=== PATIENT | female | born 1950 | race Caucasian/White ===

== ENCOUNTER 2016-10-19 11:43 | Inpatient (IN) ==
[2016-10-19] MEDS ORDERED: Ipratropium/Albuterol Neb 3 ML ONE (11:47)
[2016-10-19] MEDS ORDERED: methylPREDNISolone 125 MG/2 ML VIAL IVP ONE (11:50)
[2016-10-19] MEDS ORDERED: Ipratropium/Albuterol Neb 3 ML IH ONE (11:50)
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
[2016-10-19 12:32] LABS: Basophils % 0.1 %; Hematocrit 40.7 % (35.3-44.9); Hemoglobin 12.9 g/dL (11.5-15.4); Immature Granulocytes % 0.7 % (0-4); Lymphocytes # 1.4 K/mcL (0.6-4.6); Lymphocytes % 9.1 %; Mean Corpuscular HGB Conc 31.7 g/dL (31.6-35.5); Mean Corpuscular Hemoglobin 24.6 pg (28.0-33.3); Mean Corpuscular Volume 77.5 fL (83.0-100.0); Mean Platelet Volume 8.4 fL (9.4-12.4); Monocytes # 0.6 K/mcL (0.0-1.3); Monocytes % 3.5 %; Neutrophils # 13.7 K/mcL (1.6-8.9); Platelet Count 350 K/mcL (140-400); Red Blood Count 5.25 M/mcL (3.82-4.97); Red Cell Distribution Width 16.2 % (11.5-14.5); Segmented Neutrophils % 86.6 %
[2016-10-19 12:46] LABS: BUN/Creatinine Ratio 12 (6-26); Blood Urea Nitrogen 10 mg/dL (7-20); Calcium 9.2 mg/dL (8.6-10.8); Carbon Dioxide 23 mEq/L (19-29); Chloride 98 mEq/L (98-109); Glucose 128 mg/dL (70-99); Osmolality,Calculated 271 (280-300); Potassium 3.9 mEq/L (3.5-4.5); Sodium 130 mEq/L (136-145); eGFR For African Americans > 60 (> 60); eGFR For Non-African Americans > 60 (> 60)
[2016-10-19] MEDS ORDERED: 0.9 % Sodium Chloride 1,000 ML IVC ONE (15:14)
[2016-10-19] MEDS ORDERED: Naloxone 0.4 MG/ML INJ IVP PRN (15:37)
--- NOTE | 2016-10-19 15:52 | Internal Med History&Physical ---
<Cyntiha Aquino Boy - Last Filed: 10/19/16 15:47> Date of Encounter: 10/19/16 Time of Encounter: 15:48 Assessment and Plan (1) Acute exacerbation of chronic obstructive airways disease Current visit: Yes Status: Acute per hx. Not on home O2. Presented with worsening SOB. 10/18/2016 CXR at urgent care suggestive of pneumonia, repeat CXR in ED non-acute. WBC 15K (on steroids at home), lactic acid 3.5. With diffuse wheezing on exam. Cont IV steroids started in ED. Add azithromycin, Rocephin to cover for possible pneumonia. Duonebs. CT chest, resp PCR pending (2) Lactic acid acidosis Current visit: Yes Status: Acute lactic acid 3.5, WBC 15K; has been on steroids at home but now with COPD exacerbation, possible pneumonia. Received 1 liter fluids in ED. Cont IV fluids , blood, urine cx pending. Cont ATBs as noted above for COPD exacerbation. Monitor repeat lactic acid (3) Atrial fibrillation Current visit: Yes Status: Acute hx paroxysmal atrial fibrillation. Not on anticoagulation for unknown reasons. EKG with ST; HR low 100s in ED. Cont home BB, ASA. Monitor on tele (4) CAD (coronary artery disease) Current visit: Yes Status: Acute per hx. Asymptomatic, denies CP. EKG without acute ST changes. Cont home ASA, statin, BB (5) Breast CA Current visit: No Status: Chronic per hx. S/p left mastectomy. No acute needs at this time. Can follow up with Oncology as needed (6) DVT prophylaxis Current visit: Yes Status[facility] Internal [facility] - H&P: HPI Chief complaint: shortness of breath Admitted From: Home Plans for Post Hospital Care: Home History of present illness: Ms. Salazar is a 66 year old female with PMH COPD, CAD, atrial fibrillation, HTN and hx breast cancer who presented [facility] on 10/19/2016 with complaints of shortness of breath. She was placed in observation status for COPD exacerbation. Information obtained for chart review and patient report. Patient reports increasing SOB for the last 2 weeks, worse with activity and minimally improved with rest. Went to local urgent care yesterday and was told she had PNA and was given rx for Levaqion and steroids. She took 2 doses of both without improvement in sx's so came to ER today. HAs a cough, productive at times. No sick contacts that she is aware. Denies CP. Past Med Surg Social Fam HX - Past Medical History Medical history: asthma, cancer, COPD Psychiatric history: no psych history - Past Surgical History Surgical History: non-contributory - Social History Smoking Status: Current every day smoker Smokeless Tobacco Status: No Alcohol use: none Drug use: none - Family History Father Hx Family Cardiac Disorders: Yes (CAD) Internal Medicine - H&P: Meds Albuterol Sulfate [Proair HFA] 1 - 2 puff IH Q4HR PRN 10/15/14 [History] Atenolol [Tenormin] 25 mg PO DAILY 10/15/14 [History] Atorvastatin [Lipitor] 40 mg PO HS 10/15/14 [History] RX: Aspirin Enteric Coated [Aspirin EC] 81 mg PO DAILY 10/15/14 [History] Anastrozole [Arimidex] 1 mg PO DAILY #30 tablet 05/03/16 [Rx] Losartan [Cozaar] 25 mg PO DAILY 08/13/16 [History] levoFLOXacin [Levofloxacin] 750 mg PO DAILY 10/19/16 [History] predniSONE [PredniSONE] 20 mg PO BID 10/19/16 [History] Allergies codeine Adverse Reaction (Mild, Verified 08/13/16 10:05) Nausea Oxycodone Adverse Reaction (Mild, Verified 08/13/16 10:05) Nausea All Systems PM: A 10-system review of systems was performed and is negative for pertinent findings except as documented above in the HPI. - Constitutional Constitutional: no chills, no fever(s), no night sweats - EENT Eyes: no change in vision, no discharge, no pain, no photophobia Ears: no ear discharge, no ear pain, no tinnitus Nose, mouth and throat: no dysphagia, no nasal discharge, no neck pain, no sore throat - Cardiovascular Cardiovascular ROS IM: no chest pain, no diaphoresis, no dyspnea, no lightheadedness, no palpitations, no syncope - Respiratory Respiratory: dyspnea, dyspnea on exertion, wheezing, chest congestion, pain with cough, no cough, no excessive phlegm production - Gastrointestinal Gastrointestinal: no abdominal pain, no diarrhea, no hematemesis, no hematochezia, no melena, no nausea, no vomiting - Genitourinary Genitourinary: no change in urinary stream, no dysuria, no flank pain, no hematuria - Musculoskeletal Musculoskeletal ROS IM: no numbness, no tingling - Integumentary Integumentary IM: no rash, no unusual bruising - Neurological Neurological ROS: no confusion, no convulsions, no focal weakness, no numbness, no tingling, no tremor(s) - Hematologic/Lymphatic Hematologic/Lymphatic: no easy bruising - Constitutional Vitals: Temp Pulse Resp BP Pulse Ox 98.7 F 100 20 161/78 95 10/19/16 13:10 10/19/16 14:44 10/19/16 14:44 10/19/16 14:44 10/19/16 14:44 General appearance: Present: A&O X 3 - Head Head exam: Present: atraumatic, normocephalic - Eye Eye exam: Present: PERRL, conjuntiva pink, sclera anicteric Pupils: Present: PERRL - Neck Neck exam general surgery: Present: supple, trachea midline. Absent: lymphadenopathy - Respiratory Respiratory exam: Present: decreased breath sounds, wheezes. Absent: accessory muscle use, rales, rhonchi - Cardiovascular Cardiovascular exam: Present: RRR, +S1, +S2. Absent: diastolic murmur, gallop, rubs, systolic murmur - GI/Abdominal GI/Abdominal exam: Present: normal bowel sounds, soft, no peritoneal signs. Absent: distended, tenderness - Extremities Exam Extremities exam: Present: warm, radial pulses palpable and symmetrical. Absent : calf tenderness, cyanotic, pedal edema - Neurological Exam Neurological exam: Present: CN II-XII intact, oriented X3, no focal deficits. Absent: pronater drift, facial droop, speech deficit - Skin Skin exam: Present: dry, intact Internal Med - H&P Results - Labs CBC & Chem 7: 10/19/16 12:20 10/19/16 12:20 <Noel Saldana - Last Filed: 10/19/16 19:38> Date of Encounter: 10/19/16 Internal Medicine - H&P: HPI History of present illness: Ms. Salazar is a 66 year old female Past Med Surg Social Fam HX - Family History Father Living Status: Cause of : CA Hx Family Cardiac Disorders: Yes (CAD) Hx Family Cancer: Yes (Lung, mets) Mother Living Status: Age at : 66 Hx Family Cardiac Disorders: Yes Hx Family Endocrine Disorder: Yes (DM) Son Living Status: Still Living Hx Family Cancer: Yes (Testicular) All Systems PM: A 10-system review of systems was performed and is negative for pertinent findings except as documented above in the HPI. - Constitutional Vitals: Temp Pulse Resp BP Pulse Ox 98.4 F 88 16 154/78 94 10/19/16 19:02 10/19/16 19:02 10/19/16 19:02 10/19/16 19:02 10/19/16 19:02 Internal Med - H&P Results - Labs CBC & Chem 7: 10/19/16 12:20 10/19/16 12:20 - Impressions ITS Impressions Chest CT 10/19/16 15:41 IMPRESSION: No acute abnormality with the above findings. Hyperinflation with upper lobe predominant centrilobular emphysema. D/ / Montrell Abrams MD / Montrell Abrams MD Interpreting Provider: Montrell Abrams MD - Attending Attestation I have personally performed a face to face evaluation on this patient. I have reviewed and agree with the care plan. History and Exam by me shows: Ms. Salazar is currently admitted for chest pain and dyspnea. She is feeling better sitting forward. CT nonacute Exam Alert. Moderate distress due to pain Heart reg Lungs with scattered L side rales Abd soft No edema Agree with plan as outlined above Concern for pleurisy or pericarditis. Check inflammatory markers. Toradol x 1
[2016-10-19] MEDS: Ipratropium/Albuterol Neb 3 ML IH SCH ×3 (15:55→22:57)
[2016-10-19 17:55] LABS: Bilirubin,Urine Negative (Negative); Blood,Urine Negative (Negative); Clarity,Urine Clear (Clear); Color,Urine Yellow (Yellow); Glucose,Urine (UA) Normal (Normal); Ketones,Urine Negative (Negative); Leukocyte Esterase,Urine Trace (Negative); Nitrite,Urine Negative (Negative); Protein,Urine Negative (Neg-Trace); Specific Gravity,Urine 1.012 (1.010-1.025); Urobilinogen,Urine Normal (Normal)
[2016-10-19 17:57] LABS: Bacteria,Urine None Seen per hpf (None-Few); Hyaline Casts,Urine None Seen per lpf (None-Few); Squamous Epithelial Cell,Urine Many per lpf (None-Few); WBC,Urine 0-3 per hpf (0-3)
[2016-10-19] MEDS: 0.9 % Sodium Chloride 1,000 ML IVC SCH (18:14)
[2016-10-19] MEDS: MethylPREDNISolone 40 MG/ML VIAL IVP SCH ×2 (18:15→23:17)
[2016-10-19] MEDS ORDERED: Ketorolac 30 MG/ML VIAL IVP ONE (18:48)
[2016-10-19] MEDS: Azithromycin 500 MG in D5% in Water 250 ML IVPB SCH (19:09)
[2016-10-20 01:57] LABS: Adenovirus Not Detected (Not Detect); Bordetella Pertussis Not Detected (Not Detect); Chlamydophila pneumoniae Not Detected (Not Detect); Coronavirus 229E Not Detected (Not Detect); Coronavirus HKU1 Not Detected (Not Detect); Coronavirus NL63 Not Detected (Not Detect); Coronavirus OC43 Not Detected (Not Detect); Human Metapneumovirus Not Detected (Not Detect); Human Rhinovirus/Enterovirus ***DETECTED*** (Not Detect); Influenza A Subtype 2009 H1 Not Detected (Not Detect); Influenza A Untypeable Not Detected (Not Detect); Influenza B Not Detected (Not Detect); Mycoplasma pneumoniae Not Detected (Not Detect); Parainfluenza Virus 1 Not Detected (Not Detect); Parainfluenza Virus 2 Not Detected (Not Detect); Parainfluenza Virus 3 Not Detected (Not Detect); Parainfluenza Virus 4 Not Detected (Not Detect); Respiratory Syncytial Virus Not Detected (Not Detect)
[2016-10-20] MEDS: Ipratropium/Albuterol Neb 3 ML IH SCH ×6 (04:06→23:16)
[2016-10-20] MEDS: *HR* Enoxaparin 40 MG/0.4 ML SYRINGE SQ SCH (06:00)
[2016-10-20] MEDS: MethylPREDNISolone 40 MG/ML VIAL IVP SCH ×3 (06:00→17:29)
[2016-10-20] MEDS: 0.9 % Sodium Chloride 1,000 ML IVC SCH ×2 (06:02→16:16)
[2016-10-20 06:30] LABS: Basophils % 0.1 %; Hemoglobin 11.4 g/dL (11.5-15.4); Immature Granulocytes % 1.1 % (0-4); Lymphocytes # 1.2 K/mcL (0.6-4.6); Lymphocytes % 7.2 %; Mean Corpuscular HGB Conc 32.6 g/dL (31.6-35.5); Mean Corpuscular Hemoglobin 25.5 pg (28.0-33.3); Mean Corpuscular Volume 78.3 fL (83.0-100.0); Mean Platelet Volume 8.5 fL (9.4-12.4); Monocytes # 0.3 K/mcL (0.0-1.3); Monocytes % 1.9 %; Neutrophils # 14.5 K/mcL (1.6-8.9); Platelet Count 286 K/mcL (140-400); Red Blood Count 4.47 M/mcL (3.82-4.97); Red Cell Distribution Width 16.4 % (11.5-14.5); Segmented Neutrophils % 89.7 %
[2016-10-20 06:45] LABS: Alanine Aminotransferase 13 Units/L (0-55); Albumin 3.2 g/dL (3.5-5.0); Albumin/Globulin Ratio 0.9 (1.1-2.2); Alkaline Phosphatase 69 Units/L (38-126); Aspartate Amino Transferase 20 Units/L (5-34); BUN/Creatinine Ratio 15 (6-26); Blood Urea Nitrogen 11 mg/dL (7-20); Calcium 8.6 mg/dL (8.6-10.8); Carbon Dioxide 26 mEq/L (19-29); Chloride 101 mEq/L (98-109); Globulin 3.4 g/dL (2.4-3.5); Glucose 145 mg/dL (70-99); Osmolality,Calculated 278 (280-300); Potassium 4.2 mEq/L (3.5-4.5); Sodium 133 mEq/L (136-145); Total Protein 6.6 g/dL (6.0-8.3); eGFR For African Americans > 60 (> 60); eGFR For Non-African Americans > 60 (> 60)
[2016-10-20 06:46] LABS: Bilirubin,Total < 0.3 mg/dL (0.2-1.2)
[2016-10-20] MEDS: Aspirin Enteric Coated 81 MG Tablet PO SCH (08:44)
[2016-10-20] MEDS: Anastrozole 1 MG TABLET PO SCH (08:44)
--- NOTE | 2016-10-20 14:45 | Electrocardiograph Report ---
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
[2016-10-20] MEDS: Azithromycin 500 MG in D5% in Water 250 ML IVPB SCH (17:29)
[2016-10-20] MEDS ORDERED: 0.9 % Sodium Chloride 1,000 ML IVC SCH (18:15)
--- NOTE | 2016-10-20 18:17 | Internal Med Progress Note ---
Date of Encounter: 10/20/16 Time of Encounter: 09:40 - Assessment and plan (1) Acute exacerbation of chronic obstructive airways disease Current Visit: Yes Status: Acute Assessment and plan: Acute exacerbation of COPD - improving slowly Continue IV azithromycin, IV Rocephin, DuoNeb breathing treatment, IV Solu- Medrol Chest x-ray - no acute process EKG - sinus rhythm with no acute ST-T changes CT chest - no acute abnormality Cardiac telemetry, continuous pulse ox, labs in a.m. Anticipate discharge home in a.m. (2) Breast CA Current Visit: No Status: Chronic Assessment and plan: History of breast cancer status post left mastectomy, continue anastrozole Qualifiers: Breast location: unspecified site of breast Estrogen receptor status: unspecified Laterality: left Qualified Code(s): C50.912 - Malignant neoplasm of unspecified site of left female breast (3) Atrial fibrillation Current Visit: Yes Status: Chronic Assessment and plan: History of paroxysmal atrial fibrillation, not on any anticoagulation, sinus rhythm at present Qualifiers: Atrial fibrillation type: paroxysmal Qualified Code(s): I48.0 - Paroxysmal atrial fibrillation (4) CAD (coronary artery disease) Current Visit: Yes Status: Chronic Assessment and plan: History of coronary artery disease as per records - stable, no anginal symptoms EKG - sinus rhythm with no acute ST-T changes Troponin - negative BN peptide - 152 Continue aspirin, statin Qualifiers: Coronary Disease-Associated Artery/Lesion type: [place] artery [place] vs. transplanted heart: pala heart Associated angina: without angina Qualified Code(s): I25.10 - Atherosclerotic heart disease of [place] coronary artery without angina pectoris (5) DVT prophylaxis Current Visit: Yes Status: Acute Assessment and plan: Continue Lovenox subcutaneous - Time Spent With Patient 25 - 35 minutes - Subjective Interval history: Examined this morning. Patient is awake and alert. Not in any distress. Denies chest pain or shortness of breath. No fever. Hemodynamically stable. States she feels better this morning. No other acute events or complaints. - Constitutional Vitals: Temp Pulse Resp BP Pulse Ox 98.0 F 80 16 157/65 97 10/20/16 15:28 10/20/16 15:28 10/20/16 15:28 10/20/16 15:28 10/20/16 15:28 General appearance: Present: A&O X 3, pleasant, no acute distress, answers questions appropriately - Head Head exam: Present: atraumatic - Eye Eye exam: Present: EOMI - ENT ENT exam: Present: mucous membranes moist - Neck Neck exam general surgery: Present: supple - Respiratory Respiratory exam: Present: wheezes (Mild scattered bilateral). Absent: accessory muscle use, rales, rhonchi, tachypnea - Cardiovascular Cardiovascular exam: Present: RRR, +S1, +S2 - GI/Abdominal GI/Abdominal exam: Present: soft. Absent: distended, firm, guarding, tenderness - Extremities Exam Extremities exam: Present: radial pulses palpable and symmetrical. Absent: cyanotic, pedal edema - Neurological Exam Neurological exam: Present: alert, oriented X3, no focal deficits Internal Medicine: Result - Labs CBC & Chem 7: 10/20/16 06:21 10/20/16 06:21 Labs: Short CBC 10/20/16 Range/Units 06:21 WBC 16.2 H (4.3-11.1) K/mcL Hgb 11.4 L D (11.5-15.4) g/dL Hct 35.0 L (35.3-44.9) % Plt Count 286 (140-400) K/mcL Neutrophils # 14.5 H (1.6-8.9) K/mcL BMP 10/20/16 06:21 Sodium 133 L Potassium 4.2 Chloride 101 Carbon Dioxide 26 BUN 11 Creatinine 0.73 Glucose 145 H Calcium 8.6 Liver Function 10/20/16 Range/Units 06:21 Total Bilirubin < 0.3 (0.2-1.2) mg/dL AST 20 (5-34) Units/L ALT 13 (0-55) Units/L Alkaline Phosphatase 69 (38-126) Units/L Albumin 3.2 L (3.5-5.0) g/dL Consult Discharge Plan - Plan Referrals: Mary Cuellar MD [Primary Care Provider] - 10/29/16 1:45 pm
[2016-10-21] MEDS: MethylPREDNISolone 40 MG/ML VIAL IVP SCH ×4 (00:05→17:32)
[2016-10-21] MEDS: 0.9 % Sodium Chloride 1,000 ML IVC SCH ×2 (00:26→09:39)
[2016-10-21] MEDS: Ipratropium/Albuterol Neb 3 ML IH SCH ×6 (04:12→23:20)
[2016-10-21 05:10] LABS: Basophils % 0.1 %; Hematocrit 34.9 % (35.3-44.9); Hemoglobin 11.1 g/dL (11.5-15.4); Lymphocytes # 1.1 K/mcL (0.6-4.6); Lymphocytes % 7.2 %; Mean Corpuscular HGB Conc 31.8 g/dL (31.6-35.5); Mean Corpuscular Hemoglobin 25.2 pg (28.0-33.3); Mean Corpuscular Volume 79.3 fL (83.0-100.0); Mean Platelet Volume 9.1 fL (9.4-12.4); Monocytes # 0.3 K/mcL (0.0-1.3); Monocytes % 2.1 %; Platelet Count 327 K/mcL (140-400); Red Cell Distribution Width 16.9 % (11.5-14.5); Segmented Neutrophils % 89.6 %
[2016-10-21] MEDS: *HR* Enoxaparin 40 MG/0.4 ML SYRINGE SQ SCH (05:56)
[2016-10-21] MEDS: Anastrozole 1 MG TABLET PO SCH (09:39)
[2016-10-21] MEDS: Aspirin Enteric Coated 81 MG Tablet PO SCH (09:39)
--- NOTE | 2016-10-21 15:55 | Internal Med Progress Note ---
Date of Encounter: 10/21/16 Time of Encounter: 09:10 - Assessment and plan (1) Acute exacerbation of chronic obstructive airways disease Current Visit: Yes Status: Acute Assessment and plan: Acute exacerbation of COPD - improving slowly Continue IV azithromycin, IV Rocephin, DuoNeb breathing treatment, IV Solu- Medrol, Symbicort Chest x-ray - no acute process EKG - sinus rhythm with no acute ST-T changes CT chest - no acute abnormality Cardiac telemetry, Anticipate discharge home in a.m. Patient qualifies for home oxygen continuous use (2) Breast CA Current Visit: No Status: Chronic Assessment and plan: History of breast cancer status post left mastectomy continue anastrozole Qualifiers: Breast location: unspecified site of breast Estrogen receptor status: unspecified Laterality: left Qualified Code(s): C50.912 - Malignant neoplasm of unspecified site of left female breast (3) Atrial fibrillation Current Visit: Yes Status: Chronic Assessment and plan: History of paroxysmal atrial fibrillation, not on any anticoagulation sinus rhythm at present Qualifiers: Atrial fibrillation type: paroxysmal Qualified Code(s): I48.0 - Paroxysmal atrial fibrillation (4) CAD (coronary artery disease) Current Visit: Yes Status: Chronic Assessment and plan: History of coronary artery disease as per records - stable, no anginal symptoms EKG - sinus rhythm with no acute ST-T changes Troponin - negative BN peptide - 152 Continue aspirin, statin Qualifiers: Coronary Disease-Associated Artery/Lesion type: [place] artery [place] vs. transplanted heart: [place] heart Associated angina: without angina Qualified Code(s): I25.10 - Atherosclerotic heart disease of [place] coronary artery without angina pectoris (5) DVT prophylaxis Current Visit: Yes Status: Acute Assessment and plan: Continue Lovenox subcutaneous - Time Spent With Patient 25 - 35 minutes - Subjective Interval history: Examined this morning. Patient is awake and alert. Not in any distress. Denies chest pain or shortness of breath. Complains of mild productive cough. No fever. Hemodynamically stable. Patient is oxygen dependent. She does qualify for home oxygen. No other acute events or complaints. - Constitutional Vitals: Temp Pulse Resp BP Pulse Ox 97.9 F 84 18 188/93 96 10/21/16 14:22 10/21/16 14:22 10/21/16 14:22 10/21/16 14:22 10/21/16 14:22 General appearance: Present: A&O X 3, pleasant, no acute distress, answers questions appropriately - Head Head exam: Present: atraumatic - Eye Eye exam: Present: EOMI - ENT ENT exam: Present: mucous membranes moist - Neck Neck exam general surgery: Present: supple - Respiratory Respiratory exam: Present: CTAB, wheezes (Mild scattered bilateral). Absent: rales, rhonchi, tachypnea - Cardiovascular Cardiovascular exam: Present: RRR, +S1, +S2 - GI/Abdominal GI/Abdominal exam: Present: soft. Absent: distended, firm, guarding, tenderness - Extremities Exam Extremities exam: Present: radial pulses palpable and symmetrical. Absent: cyanotic, pedal edema - Neurological Exam Neurological exam: Present: alert, oriented X3, no focal deficits. Absent: facial droop, speech deficit Internal Medicine: Result - Labs CBC & Chem 7: 10/21/16 03:27 10/20/16 06:21 Labs: Short CBC 10/21/16 Range/Units 03:27 WBC 15.6 H (4.3-11.1) K/mcL Hgb 11.1 L (11.5-15.4) g/dL Hct 34.9 L (35.3-44.9) % Plt Count 327 (140-400) K/mcL Neutrophils # 14.0 H (1.6-8.9) K/mcL - Impressions Impressions Chest X-Ray 10/20/16 19:57 IMPRESSION: No acute disease. D/ / Samantha Vasquez Cha, MD / Samantha Vasquez Cha, MD Interpreting Provider: Samantha Vasquez Cha, MD Consult Discharge Plan - Plan Referrals: Mary Cuellar MD [Primary Care Provider] - 10/29/16 1:45 pm
[2016-10-21] MEDS: Budesonide/Formoterol 160/4.5 MDI IH SCH ×2 (16:15→19:55)
[2016-10-21] MEDS: Azithromycin 500 MG in D5% in Water 250 ML IVPB SCH (17:32)
[2016-10-22] MEDS: MethylPREDNISolone 40 MG/ML VIAL IVP SCH ×2 (00:16→06:06)
[2016-10-22] MEDS: Ipratropium/Albuterol Neb 3 ML IH SCH ×3 (03:57→11:44)
[2016-10-22] MEDS: *HR* Enoxaparin 40 MG/0.4 ML SYRINGE SQ SCH (06:06)
[2016-10-22] MEDS: Budesonide/Formoterol 160/4.5 MDI IH SCH (08:02)
[2016-10-22] MEDS: Aspirin Enteric Coated 81 MG Tablet PO SCH (09:08)
[2016-10-22] MEDS: Anastrozole 1 MG TABLET PO SCH (09:08)
[2016-10-22 11:05] VITALS: BP 154/78
--- NOTE | 2016-10-22 11:31 | Discharge Summary ---
Date of Encounter: 10/22/16 Time of Encounter: 09:10 - Discharge Diagnosis (1) Acute exacerbation of chronic obstructive airways disease Priority: Primary Status: Acute Comments: Acute exacerbation of COPD - now improved Continue DuoNeb breathing treatment, tapering dose steroid, O2 via nasal cannula , Symbicort Chest x-ray - no acute process EKG - sinus rhythm with no acute ST-T changes CT chest - no acute abnormality Stable for discharge today Advised to follow up with PCP and pulmonology as outpatient (2) Breast CA Priority: Secondary Status: Chronic Comments: History of breast cancer status post left mastectomy continue anastrozole Qualifiers: Breast location: unspecified site of breast Estrogen receptor status: unspecified Laterality: left Qualified Code(s): C50.912 - Malignant neoplasm of unspecified site of left female breast (3) Atrial fibrillation Priority: Secondary Status: Chronic Comments: History of paroxysmal atrial fibrillation, not on any anticoagulation sinus rhythm at present Qualifiers: Atrial fibrillation type: paroxysmal Qualified Code(s): I48.0 - Paroxysmal atrial fibrillation (4) CAD (coronary artery disease) Priority: Secondary Status: Chronic Comments: History of coronary artery disease as per records - stable, no anginal symptoms EKG - sinus rhythm with no acute ST-T changes Troponin - negative BN peptide - 152 Continue aspirin, statin Qualifiers: Coronary Disease-Associated Artery/Lesion type: [place] artery [place] vs. transplanted heart: [place] heart Associated angina: without angina Qualified Code(s): I25.10 - Atherosclerotic heart disease of [place] coronary artery without angina pectoris - Discharge Medications Prescriptions: Ipratropium/Albuterol Neb [Duoneb] 3 ml IH [id number] PRN #30 inh PRN Reason: Shortness Of Breath/Wheezing Budesonide/Formoterol 160/4.5 [Symbicort 160/4.5] 1 puff IH BIDR #1 levoFLOXacin [Levofloxacin] 750 mg PO DAILY #7 predniSONE [PredniSONE] 20 mg PO BID #30 Home Medications: Albuterol Sulfate [Albuterol Inhaler] 1 - 2 puff IH Q4HR PRN 10/15/14 [History] Aspirin Enteric Coated [Aspirin EC] 81 mg PO DAILY 10/15/14 [History] Atenolol [Tenormin] 25 mg PO DAILY 10/15/14 [History] Atorvastatin [Lipitor] 40 mg PO HS 10/15/14 [History] Anastrozole [Arimidex] 1 mg PO DAILY #30 tablet 05/03/16 [Rx] Losartan [Cozaar] 25 mg PO DAILY 08/13/16 [History] Budesonide/Formoterol 160/4.5 [Symbicort 160/4.5] 1 puff IH BIDR #1 10/22/16 [ Rx] Ipratropium/Albuterol Neb [Duoneb] 3 ml IH I2TIERS PRN #30 inh 10/22/16 [Rx] levoFLOXacin [Levofloxacin] 750 mg PO DAILY #7 10/22/16 [Rx] predniSONE [PredniSONE] 20 mg PO BID #30 10/22/16 [Rx] Allergies/Adverse Reactions: 3 Allergy/AdvReac Type Severity Reaction Status Date / Time codeine AdvReac Mild Nausea Verified 08/13/16 10:05 Oxycodone AdvReac Mild Nausea Verified 08/13/16 10:05 Date of admission: 10/20/16 18:16 Primary care physician: Mary Cuellar Anticipated date of discharge: 10/22/16 - Patient Status Disposition: Home, Self-Care Condition: Good Functional capacity at discharge: independent ambulation Overall status at discharge: patient is progressing back to baseline - Discharge Instructions Instructions: Ipratropium/Albuterol (By breathing), COPD, 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 Salazar is a 66 year old female with past medical history of COPD, coronary artery disease, hypertension and history of breast cancer. She presented to the ED with complaints of shortness of breath. Patient stated that she had worsening shortness of breath over the past 2-3 weeks. Symptoms were present even at rest. She initially went to urgent care and was told that she has pneumonia and was given a prescription for levofloxacin and some steroids. Patient stated that her symptoms were worsening and decided to come to the ED. Patient was admitted for acute COPD exacerbation. Patient was started on IV azithromycin and IV Rocephin. She was also on DuoNeb breathing treatment and also on IV Solu-Medrol. Chest x-ray did not show any acute process. EKG showed normal sinus rhythm with no acute ST-T changes. CT of the chest did not reveal any acute abnormality. We continued all home medications. Patient also started on Symbicort which she will need to be continued on even at home. Patient was hypoxic when she was off supplemental oxygen via nasal cannula. She has qualified for home oxygen via nasal cannula at 3 L/m for continuous use. Patient has been advised to continue her oxygen use at home. She has also been advised to continue DuoNeb breathing treatment and continue tapering dose of steroids at home. She will also need to continue antibiotics. Patient' s symptoms are now improved. Patient states she feels better. She is tolerating oral diet well and ambulating well. Patient did not have any other acute events or complications during her stay in the hospital. Patient has been explained about her condition and plan of care in detail. She understood and agreed. No unanswered questions. No family members at the time of discharge. Patient states she wants to go home today. Advised to return to ER if symptoms worsen. She is being discharged in stable condition. Time spent discussing smoking cessation with patient: 3 to 10 minutes - Time Spent with Patient Total time spent providing and/or coordinating discharge services: Greater than 30 minutes - Constitutional Vitals: Temp Pulse Resp BP Pulse Ox 98.4 F 71 15 154/78 97 10/22/16 11:03 10/22/16 11:03 10/22/16 11:03 10/22/16 11:03 10/22/16 11:03 General appearance: Present: A&O X 3, pleasant, no acute distress, answers questions appropriately - Head Head exam: Present: atraumatic - Eye Eye exam: Present: EOMI - ENT ENT exam: Present: mucous membranes moist - Neck Neck exam general surgery: Present: supple - Respiratory Respiratory exam: Present: CTAB, wheezes (Minimal bilateral, now improved, otherwise clear to auscultation). Absent: rales, rhonchi, tachypnea - Cardiovascular Cardiovascular exam: Present: RRR, +S1, +S2 - GI/Abdominal GI/Abdominal exam: Present: soft. Absent: distended, firm, guarding, tenderness - Extremities Exam Extremities exam: Present: radial pulses palpable and symmetrical. Absent: cyanotic, pedal edema - Neurological Exam Neurological exam: Present: alert, oriented X3, no focal deficits. Absent: facial droop, speech deficit
== END 2016-10-22 13:15 | disposition home or self-care (01) | DRG 190 ==
LOC: 3BNU 11:43 → EMEROO 11:43 → 3BNU 17:06
PROVIDERS: ADMIT Nurse Practitioner Family; ATTEND Registered Nurse

== ENCOUNTER 2017-04-16 19:58 | Inpatient (IN) ==
[2017-04-16] MEDS ORDERED: 0.9 % Sodium Chloride 1,000 ML IVC ONE (20:13)
[2017-04-16] MEDS ORDERED: methylPREDNISolone 125 MG/2 ML VIAL IVP ONE (20:13)
[2017-04-16] MEDS ORDERED: Ipratropium/Albuterol Neb 3 ML IH ONE (20:13)
--- NOTE | 2017-04-16 20:15 | Emergency Department Note ---
Disposition Clinical Impression: COPD (chronic obstructive pulmonary disease) Qualifiers: COPD type: unspecified COPD Qualified Code(s): J44.9 - Chronic obstructive pulmonary disease, unspecified Disposition: Admitted As Inpatient Condition: Fair Referrals: NONE,PCP [Non-Partnered Physician] - Forms: ED Satisfaction Letter Time of Disposition: 21:32 SOB HPI - General Chief Complaint: ED Shortness of Breath/Dyspnea Stated Complaint: SERENE Time Seen by Provider: 04/16/17 20:03 Source: patient, EMS Mode of arrival: ambulatory Limitations: no limitations Nursing Notes Reviewed: Yes Vital Signs Reviewed: Yes - History of Present Illness 67-year-old female history of COPD oxygen dependent on 3 L presents for evaluation of dyspnea. Patient states that she has been more dyspneic over the past week and half. The patient was seen recently approximately 2 days ago and was noted to have steroid as well as albuterol given in the emergency department. Patient was discharged home on the same. Patient notes worsening dyspnea with a productive cough. The patient denies any chest pain. Notes some nausea but no vomiting. No Abdominal pain. Patient denies any other symptoms. - Related Data Home Medications Medication Instructions Recorded Confirmed Albuterol Sulfate [Albuterol 1 - 2 puff IH Q4HR PRN 10/15/14 10/19/16 Inhaler] Aspirin Enteric Coated [Aspirin EC] 81 mg PO DAILY 10/15/14 10/19/16 Atenolol [Tenormin] 25 mg PO DAILY 10/15/14 10/19/16 Atorvastatin [Lipitor] 40 mg PO HS 10/15/14 10/19/16 Losartan [Cozaar] 25 mg PO DAILY 08/13/16 10/19/16 Previous Rx's Medication Instructions Recorded Anastrozole [Arimidex] 1 mg PO DAILY #30 tablet 05/03/16 Budesonide/Formoterol 160/4.5 1 puff IH BIDR #1 10/22/16 [Symbicort 160/4.5] Ipratropium/Albuterol Neb [Duoneb] 3 ml IH [id number] PRN #30 inh 10/22/16 levoFLOXacin [Levofloxacin] 750 mg PO DAILY #7 10/22/16 predniSONE [PredniSONE] 20 mg PO BID #30 10/22/16 Ipratropium/Albuterol Neb [Duoneb] 3 ml IH Q4HR PRN #4 vial.neb 04/14/17 predniSONE [PredniSONE] 40 mg PO DAILY #10 tablet 04/14/17 Allergies Allergy/AdvReac Type Severity Reaction Status Date / Time codeine AdvReac Mild Nausea Verified 04/14/17 18:50 Oxycodone AdvReac Mild Nausea Verified 04/14/17 18:50 All systems ED: reviewed and negative except as stated. Constitutional: Denies: fever Cardiovascular: Denies: chest pain Respiratory: Reports: cough, dyspnea, sputum production Gastrointestinal: Denies: abdominal pain, nausea, vomiting Genitourinary: Denies: urgency Musculoskeletal: Denies: back pain Neurological: Denies: headache, weakness Past Medical History - Past Medical History Source: patient Medical history: Reports: asthma, cancer, COPD Surgical history: Reports: non-contributory Psychiatric history: Reports: anxiety - Social History Smoking Status: Current every day smoker Smokeless Tobacco Status: No Alcohol use: Reports: none Drug use: Reports: none Physical Exam - General Limitations: no limitations General appearance: alert, in no apparent distress - Head Head exam: atraumatic, normocephalic, normal inspection - Eye Eye exam: Present: normal appearance, PERRL, EOMI - ENT ENT exam: normal exam, normal oropharynx, mucous membranes moist - Neck Neck exam: Present: normal inspection, trachea midline - Chest Chest inspection: Present: normal inspection, symmetric chest wall rise - Respiratory Respiratory exam: Present: accessory muscle use, prolonged expiratory phase, other (Diffusely diminished breath sounds throughout). Absent: respiratory distress - Cardiovascular Cardiovascular exam: Present: regular rate, normal rhythm. Absent: systolic murmur - Abdominal Exam Abdominal exam: Present: soft, Non-Tender - Extremities Exam Extremities exam: Present: normal inspection. Absent: pedal edema - Back Exam Back exam: Present: normal inspection - Neurological Exam Neurological exam: Present: alert - Skin Skin exam: Present: warm, dry, intact, normal color Course Course Narrative: Patient will get basic lab work, EKG, chest x-ray. Patient with respiratory support with DuoNeb nebs, steroids. Patient will be likely admitted. - Reevaluation(s) Reevaluation #1: Patient's resting comfortably. Time: 21:13 Vital Signs Temperature 97.6 F 04/16/17 19:59 Pulse Rate 91 04/16/17 19:59 Respiratory Rate 22 04/16/17 19:59 Blood Pressure 142/80 04/16/17 19:59 O2 Sat by Pulse Oximetry 96 04/16/17 19:59 Temperature 97.6 F 04/16/17 19:59 Pulse Rate 91 04/16/17 19:59 Respiratory Rate 18 04/16/17 20:23 Blood Pressure 142/80 04/16/17 19:59 O2 Sat by Pulse Oximetry 94 04/16/17 20:23 Oxygen Delivery Oxygen Delivery Nasal Cannula Shortness of Breath/Dyspnea - MDM Narrative Medical decision making narrative: 67 year old female history of COPD presents for evaluation of respiratory distress. Patient was seen earlier this week for similar complaints. Patient' s master's at home. Patient using her nebs at home. Patient's had increased work of breathing with change in sputum production. Given the patient's increased work of breathing as well as change in sputum patient will be admitted to the hospital service for further respiratory support monitoring. Patient was started on antibiotics. Patient was also placed on BiPAP due to increased work of breathing. - Lab Data Lab results reviewed: Yes I reviewed the patient's lab results. Result diagrams: 04/16/17 20:45 04/16/17 20:45 Lab Results 04/16/17 04/16/17 04/16/17 Range/Units 20:45 20:45 20:45 WBC 16.8 H D (4.3-11.1) K/mcL RBC 4.79 (3.82-4.97) M/mcL Hgb 11.8 (11.5-15.4) g/dL Hct 37.4 (35.3-44.9) % MCV 78.1 L (83.0-100.0) fL MCH 24.6 L (28.0-33.3) pg MCHC 31.6 (31.6-35.5) g/dL RDW 19.3 H (11.5-14.5) % Plt Count 394 (140-400) K/mcL MPV 8.7 L (9.4-12.4) fL Immature Gran % 0.5 (0-4) % Seg Neutrophils % 75.1 % Lymphocytes % 14.5 % Monocytes % 9.8 % Eosinophils % 0.0 % Basophils % 0.1 % Neutrophils # 12.6 H (1.6-8.9) K/mcL Lymphocytes # 2.4 (0.6-4.6) K/mcL Monocytes # 1.7 H (0.0-1.3) K/mcL Eosinophils # 0.0 (0.0-0.6) K/mcL Basophils # 0.0 (0.0-0.2) K/mcL VBG pH (7.32-7.42) pH Units VBG pCO2 (41-51) mmHg VBG pO2 (25-50) mmHg VBG HCO3 (21-27) mEq/L Sodium 136 (136-145) mEq/L Potassium 4.3 (3.5-5.1) mEq/L Chloride 100 (98-107) mEq/L Carbon Dioxide 29 (23-29) mEq/L BUN 17 (8-23) mg/dL Creatinine 0.64 (0.60-1.20) mg/dL Est GFR ( Amer) > 60 (> 60) Est GFR (Non-Af Amer) > 60 (> 60) BUN/Creatinine Ratio 27 H (6-26) Glucose 108 H (70-105) mg/dL Calculated Osmolality 284 (280-300) Lactic Acid 1.5 (0.5-2.2) mmol/L Calcium 9.1 (8.6-10.3) mg/dL Troponin I (< 0.04) ng/mL B-Natriuretic Peptide (Less than 100) pg/mL 04/16/17 04/16/17 04/16/17 Range/Units 20:45 20:45 21:04 WBC (4.3-11.1) K/mcL RBC (3.82-4.97) M/mcL Hgb (11.5-15.4) g/dL Hct (35.3-44.9) % MCV (83.0-100.0) fL MCH (28.0-33.3) pg MCHC (31.6-35.5) g/dL RDW (11.5-14.5) % Plt Count (140-400) K/mcL MPV (9.4-12.4) fL Immature Gran % (0-4) % Seg Neutrophils % % Lymphocytes % % Monocytes % % Eosinophils % % Basophils % % Neutrophils # (1.6-8.9) K/mcL Lymphocytes # (0.6-4.6) K/mcL Monocytes # (0.0-1.3) K/mcL Eosinophils # (0.0-0.6) K/mcL Basophils # (0.0-0.2) K/mcL VBG pH 7.29 L (7.32-7.42) pH Units VBG pCO2 61 H (41-51) mmHg VBG pO2 43 (25-50) mmHg VBG HCO3 29 H (21-27) mEq/L Sodium (136-145) mEq/L Potassium (3.5-5.1) mEq/L Chloride (98-107) mEq/L Carbon Dioxide (23-29) mEq/L BUN (8-23) mg/dL Creatinine (0.60-1.20) mg/dL Est GFR ( Amer) (> 60) Est GFR (Non-Af Amer) (> 60) BUN/Creatinine Ratio (6-26) Glucose (70-105) mg/dL Calculated Osmolality (280-300) Lactic Acid (0.5-2.2) mmol/L Calcium (8.6-10.3) mg/dL Troponin I < 0.03 (< 0.04) ng/mL B-Natriuretic Peptide 32 (Less than 100) pg/mL - Radiology Data Radiology results reviewed: Yes I reviewed the patient's radiology results. Chest X-Ray 04/16/17 20:13 IMPRESSION: No acute process. D/ / Darshana Walsh MD / Darshana Walsh MD Interpreting Provider: Darshana Walsh MD - EKG Data EKG attestation: Yes I reviewed and interpreted this EKG. EKG shows normal: Reports: sinus rhythm Rate: Reports: normal Rhythm: Reports: NSR [place]/QRS: Reports: normal Q waves: Reports: v1 Interpretation: Reports: no acute changes S.B.A.R. - S.B.A.R. Situation: Demographics Background: Presenting Complaint Assessment: Vital Signs, Course and respsone to treatment, Patient/Family Expectation Recommendation: Barrier(s) to disposition, Recommendation based on pending studies, treatments, or consults S.B.A.RLefty Report Given to: Dr. Julio De Paz Time: 21:29 Attestation Statement - Attestation Attestation: I examined this patient and my medical decision-making was reviewed with the Resident Physician. I agree with the documented findings, disposition and treatment plan as described except to the extent set forth below. Findings consistent with hypoxic respiratory failure. History of COPD. We will start antibiotics, bronchodilator, supplemental oxygen, assess need for BiPAP. Patient be admitted for further evaluation. Critical care performed:35 Time is exclusive of separately billable procedures. Time includes: direct patient care, patient reassessment, coordination of patient care, interpretation of data (laboratory data, radiology data, and respiratory data), review of patient's medical records, medical consultation and documentation of patient care. Procedures included in critical care time:0 Procedures excluded from critical care time: 0
[2017-04-16] MEDS ORDERED: Levofloxacin 500 MG/100 ML 500 MG/100 ML BAG IVPB ONE (20:52)
[2017-04-16 20:59] LABS: Basophils % 0.1 %; Hematocrit 37.4 % (35.3-44.9); Hemoglobin 11.8 g/dL (11.5-15.4); Immature Granulocytes % 0.5 % (0-4); Lymphocytes # 2.4 K/mcL (0.6-4.6); Lymphocytes % 14.5 %; Mean Corpuscular HGB Conc 31.6 g/dL (31.6-35.5); Mean Corpuscular Hemoglobin 24.6 pg (28.0-33.3); Mean Corpuscular Volume 78.1 fL (83.0-100.0); Mean Platelet Volume 8.7 fL (9.4-12.4); Monocytes # 1.7 K/mcL (0.0-1.3); Monocytes % 9.8 %; Neutrophils # 12.6 K/mcL (1.6-8.9); Platelet Count 394 K/mcL (140-400); Red Blood Count 4.79 M/mcL (3.82-4.97); Red Cell Distribution Width 19.3 % (11.5-14.5); Segmented Neutrophils % 75.1 %
[2017-04-16 21:12] LABS: VBG HCO3 29 mEq/L (21-27); VBG PCO2 61 mmHg (41-51); VBG PH 7.29 pH Units (7.32-7.42); VBG PO2 43 mmHg (25-50)
[2017-04-16 21:16] LABS: BUN/Creatinine Ratio 27 (6-26); Blood Urea Nitrogen 17 mg/dL (8-23); Calcium 9.1 mg/dL (8.6-10.3); Carbon Dioxide 29 mEq/L (23-29); Chloride 100 mEq/L (98-107); Glucose 108 mg/dL (70-105); Osmolality,Calculated 284 (280-300); Potassium 4.3 mEq/L (3.5-5.1); Sodium 136 mEq/L (136-145); eGFR For African Americans > 60 (> 60); eGFR For Non-African Americans > 60 (> 60)
[2017-04-16] MEDS ORDERED: *HR* LORazepam 1 MG TABLET PO ONE (21:20)
[2017-04-16] MEDS ORDERED: Naloxone 0.4 MG/ML INJ IVP PRN (21:49)
[2017-04-16] MEDS ORDERED: Ipratropium/Albuterol Neb 3 ML IH PRN (21:50)
[2017-04-16] MEDS ORDERED: clonazePAM 0.5 MG TABLET PO PRN (21:50)
--- NOTE | 2017-04-16 21:54 | Internal Med History&Physical ---
Date of Encounter: 04/16/17 Time of Encounter: 21:51 Assessment and Plan (1) Acute exacerbation of chronic obstructive airways disease Current visit: No Status: Acute IV antibiotics, IV steriods, duonebs CXR clear send RVP pulse ox monitoring (2) Fungal rash of torso Current visit: Yes Status: Acute topical anti fungal application (3) HTN (hypertension) Current visit: Yes Status: Acute Qualifiers: Hypertension type: essential hypertension Qualified Code(s): I10 - Essential (primary) hypertension Internal Medicine - H&P: HPI Chief complaint: SOB History of present illness: Ms. Salazar is a 67 year old female presents with COPD exacerbation having failed home therapy. She was seen here on and sent home on PO medications. She did not do well and failed home therapy needing return to the hospital. In the last 4 days , she has SOB, difficulty climbing stairs, ambulating around her house. Today, she developed productive cough, greenish sputum. No fevre or chills. She smokes 1/2 PPD but has not smoked for the last 4 days. At baseline she uses 3 L NC. EKG personally reviewed with rate 87 XR/XR chest 1V portable IMPRESSION: No acute process. Past Med Surg Social Fam HX - Past Medical History Medical history: asthma, cancer, COPD Psychiatric history: anxiety - Past Surgical History Surgical History: non-contributory - Social History Smoking Status: Current every day smoker Smokeless Tobacco Status: No Alcohol use: none Drug use: none - Family History Father Living Status: Hx Family Cardiac Disorders: Yes (CAD) Hx Family Cancer: Yes (Lung, mets) Mother Living Status: Hx Family Cardiac Disorders: Yes Hx Family Endocrine Disorder: Yes (DM) Son Living Status: Still Living Hx Family Cancer: Yes (Testicular) Internal Medicine - H&P: Meds Albuterol Sulfate [Albuterol Inhaler] 1 - 2 puff IH Q4HR PRN 10/15/14 [History] Aspirin Enteric Coated [Aspirin EC] 81 mg PO DAILY 10/15/14 [History] Atenolol [Tenormin] 25 mg PO DAILY 10/15/14 [History] Atorvastatin [Lipitor] 40 mg PO HS 10/15/14 [History] Anastrozole [Arimidex] 1 mg PO DAILY #30 tablet 05/03/16 [Rx] Losartan [Cozaar] 25 mg PO DAILY 08/13/16 [History] Budesonide/Formoterol 160/4.5 [Symbicort 160/4.5] 1 puff IH BIDR #1 10/22/16 [Rx ] Ipratropium/Albuterol Neb [Duoneb] 3 ml IH [id number] PRN #30 inh 10/22/16 [Rx] levoFLOXacin [Levofloxacin] 750 mg PO DAILY #7 10/22/16 [Rx] predniSONE [PredniSONE] 20 mg PO BID #30 10/22/16 [Rx] Ipratropium/Albuterol Neb [Duoneb] 3 ml IH Q4HR PRN #4 vial.neb 04/14/17 [Rx] predniSONE [PredniSONE] 40 mg PO DAILY #10 tablet 04/14/17 [Rx] 3 Allergy/AdvReac Type Severity Reaction Status Date / Time codeine AdvReac Mild Nausea Verified 04/14/17 18:50 Oxycodone AdvReac Mild Nausea Verified 04/14/17 18:50 All Systems PM: A 10-system review of systems was performed and is negative for pertinent findings except as documented above in the HPI. Review of systems: ROS 14 point review of systems reviewed as best as possible given presentation. Pertinent positive or negative as per HPI or otherwise reviewed as negative - Constitutional Vitals: Temp Pulse Resp BP Pulse Ox 97.6 F 91 18 142/80 94 04/16/17 19:59 04/16/17 19:59 04/16/17 20:23 04/16/17 19:59 04/16/17 20:23 Exam: General - AAO x 3 Psych - Appropriate affect/speech. No agitation Eyes - KELLY. Eye lids intact. No scleral icterus Heart - Sinus. RRR. S1 and S2 present. No added HS/murmurs appreciated. No elevated JVD appreciated. Lung - Adequate air entry b/l, Diffuse wheezes through, no crackles GI - Soft, non-tender. No hepatosplenomegaly/ascites. BS+ - No CVA/suprapubic tenderness or palpable bladder distension Skin - Intact. No rash/petechiae/ecchymosis. Warm extremities Internal Med - H&P Results - Labs CBC & Chem 7: 04/16/17 20:45 04/16/17 20:45
[2017-04-16] MEDS ORDERED: Nicotine 14 MG PATCH.TD24 TD SCH (22:00)
[2017-04-17] MEDS: MethylPREDNISolone 40 MG/ML VIAL IVP SCH ×4 (00:48→21:16)
[2017-04-17] MEDS: Nystatin POWDER 30 GM BOTTLE TP SCH ×4 (01:07→21:16)
[2017-04-17 01:13] LABS: Adenovirus Not Detected (Not Detect); Bordetella Pertussis Not Detected (Not Detect); Chlamydophila pneumoniae Not Detected (Not Detect); Coronavirus 229E Not Detected (Not Detect); Coronavirus HKU1 Not Detected (Not Detect); Coronavirus NL63 Not Detected (Not Detect); Coronavirus OC43 Not Detected (Not Detect); Human Metapneumovirus Not Detected (Not Detect); Human Rhinovirus/Enterovirus Not Detected (Not Detect); Influenza A Subtype 2009 H1 Not Detected (Not Detect); Influenza A Untypeable Not Detected (Not Detect); Influenza B Not Detected (Not Detect); Mycoplasma pneumoniae Not Detected (Not Detect); Parainfluenza Virus 1 Not Detected (Not Detect); Parainfluenza Virus 2 Not Detected (Not Detect); Parainfluenza Virus 3 Not Detected (Not Detect); Parainfluenza Virus 4 Not Detected (Not Detect); Respiratory Syncytial Virus Not Detected (Not Detect)
[2017-04-17] MEDS: Ipratropium/Albuterol Neb 3 ML IH SCH ×4 (04:51→22:15)
[2017-04-17 06:12] LABS: Basophils % 0.1 %; Hematocrit 33.8 % (35.3-44.9); Hemoglobin 10.6 g/dL (11.5-15.4); Immature Granulocytes % 1.2 % (0-4); Lymphocytes # 0.9 K/mcL (0.6-4.6); Lymphocytes % 6.7 %; Mean Corpuscular HGB Conc 31.4 g/dL (31.6-35.5); Mean Corpuscular Hemoglobin 24.5 pg (28.0-33.3); Mean Corpuscular Volume 78.1 fL (83.0-100.0); Mean Platelet Volume 9.1 fL (9.4-12.4); Monocytes # 0.3 K/mcL (0.0-1.3); Monocytes % 2.3 %; Neutrophils # 12.4 K/mcL (1.6-8.9); Platelet Count 341 K/mcL (140-400); Red Blood Count 4.33 M/mcL (3.82-4.97); Segmented Neutrophils % 89.7 %
[2017-04-17 06:34] LABS: BUN/Creatinine Ratio 24 (6-26); Blood Urea Nitrogen 14 mg/dL (8-23); Calcium 8.6 mg/dL (8.6-10.3); Carbon Dioxide 29 mEq/L (23-29); Chloride 102 mEq/L (98-107); Glucose 149 mg/dL (70-105); Magnesium 1.9 mg/dL (1.6-2.6); Osmolality,Calculated 283 (280-300); Potassium 4.7 mEq/L (3.5-5.1); Sodium 135 mEq/L (136-145); eGFR For African Americans > 60 (> 60); eGFR For Non-African Americans > 60 (> 60)
[2017-04-17] MEDS ORDERED: Nicotine 14 MG PATCH.TD24 TD PRN (10:50)
[2017-04-17] MEDS: Aspirin Enteric Coated 81 MG Tablet PO SCH (11:05)
[2017-04-17] MEDS: Anastrozole 1 MG TABLET PO SCH (11:05)
[2017-04-17] MEDS: Metoprolol XL (24 HR) Succ 25 MG TAB.ER.24H PO SCH (11:05)
--- NOTE | 2017-04-17 14:09 | Internal Med Progress Note ---
Date of Encounter: 04/17/17 Time of Encounter: 14:07 - Assessment and plan (1) Acute exacerbation of chronic obstructive airways disease Current Visit: No Status: Acute Assessment and plan: Reports of improvement compared to previous day will continue systemic steroids,abx, bronchodilator support O2 supplementation monitor O2 saturation, goal O2 sat: 88-92% will closely monitor respiratory status (2) HTN (hypertension) Current Visit: Yes Status: Chronic Assessment and plan: BP within acceptable range continue home meds Hydralazine 10mg IV q6h prn SBP>160 Qualifiers: Hypertension type: essential hypertension Qualified Code(s): I10 - Essential (primary) hypertension (3) DVT prophylaxis Current Visit: No Status: Acute Assessment and plan: Heparin SQ (4) CAD (coronary artery disease) Current Visit: No Status: Chronic Assessment and plan: no signs of angina present continue home meds (asa, statin, bb) Qualifiers: Coronary Disease-Associated Artery/Lesion type: [place] artery [place] vs. transplanted heart: [place] heart Associated angina: without angina Qualified Code(s): I25.10 - Atherosclerotic heart disease of [place] coronary artery without angina pectoris (5) Tobacco abuse Current Visit: Yes Status: Chronic Assessment and plan: smoking cessation counseling provided nicotine supplementation given - Subjective Interval history: Patient seen and examined at bedside. Reports of feeling better compared to previous day. Currently saturating well on 3.5L and states her baseline is 3L. - Constitutional Vitals: Temp Pulse Resp BP Pulse Ox 97.7 F 82 17 150/84 96 04/17/17 12:24 04/17/17 12:24 04/17/17 12:24 04/17/17 12:24 04/17/17 12:24 General appearance: Present: A&O X 3, no acute distress, obese - Head Head exam: Present: atraumatic, normocephalic - Eye Eye exam: Present: conjuntiva pink, sclera anicteric - Respiratory Respiratory exam: Absent: respiratory distress (diffuse expiratory wheezing, decreased breath sounds ) - Cardiovascular Cardiovascular exam: Present: RRR, +S1, +S2. Absent: diastolic murmur, gallop, rubs, systolic murmur - GI/Abdominal GI/Abdominal exam: Present: normal bowel sounds, soft, no peritoneal signs. Absent: distended, tenderness - Extremities Exam Extremities exam: Present: warm, radial pulses palpable and symmetrical. Absent : calf tenderness, pedal edema - Neurological Exam Neurological exam: Present: oriented X3 Internal Medicine: Result - Labs CBC & Chem 7: 04/17/17 05:34 04/17/17 05:34 Labs: Short CBC 04/17/17 Range/Units 05:34 WBC 13.8 H (4.3-11.1) K/mcL Hgb 10.6 L (11.5-15.4) g/dL Hct 33.8 L (35.3-44.9) % Plt Count 341 (140-400) K/mcL Neutrophils # 12.4 H (1.6-8.9) K/mcL BMP 04/17/17 05:34 Sodium 135 L Potassium 4.7 Chloride 102 Carbon Dioxide 29 BUN 14 Creatinine 0.58 L Glucose 149 H Calcium 8.6 Consult Discharge Plan - Plan Referrals: Mary Cuellar MD [Primary Care Provider] -
[2017-04-17] MEDS ORDERED: Ibuprofen 600 MG TABLET PO ONE (14:25)
[2017-04-17] MEDS: ALPRAZolam 0.25 MG TABLET PO PRN (14:39)
[2017-04-17] MEDS: *HR* Heparin 5,000 UNIT/ML VIAL SQ SCH (18:38)
[2017-04-17] MEDS: Levofloxacin 500 MG/100 ML 500 MG/100 ML BAG IVPB SCH (21:17)
[2017-04-18] MEDS: Ipratropium/Albuterol Neb 3 ML IH SCH ×4 (04:10→22:21)
[2017-04-18] MEDS: *HR* Heparin 5,000 UNIT/ML VIAL SQ SCH ×2 (05:12→19:09)
[2017-04-18] MEDS: MethylPREDNISolone 40 MG/ML VIAL IVP SCH ×2 (05:13→16:37)
[2017-04-18 07:06] LABS: Basophils % 0.1 %; Hematocrit 33.1 % (35.3-44.9); Hemoglobin 10.5 g/dL (11.5-15.4); Immature Granulocytes % 0.9 % (0-4); Lymphocytes # 1.2 K/mcL (0.6-4.6); Lymphocytes % 11.7 %; Mean Corpuscular HGB Conc 31.7 g/dL (31.6-35.5); Mean Corpuscular Hemoglobin 24.6 pg (28.0-33.3); Mean Corpuscular Volume 77.5 fL (83.0-100.0); Mean Platelet Volume 8.9 fL (9.4-12.4); Monocytes # 0.8 K/mcL (0.0-1.3); Neutrophils # 8.1 K/mcL (1.6-8.9); Platelet Count 322 K/mcL (140-400); Red Blood Count 4.27 M/mcL (3.82-4.97); Segmented Neutrophils % 79.3 %
[2017-04-18 07:24] LABS: BUN/Creatinine Ratio 26 (6-26); Blood Urea Nitrogen 14 mg/dL (8-23); Calcium 8.9 mg/dL (8.6-10.3); Carbon Dioxide 33 mEq/L (23-29); Chloride 102 mEq/L (98-107); Glucose 138 mg/dL (70-105); Magnesium 2.1 mg/dL (1.6-2.6); Osmolality,Calculated 287 (280-300); Phosphorous 2.9 mg/dL (2.7-4.5); Potassium 4.3 mEq/L (3.5-5.1); Sodium 137 mEq/L (136-145); eGFR For African Americans > 60 (> 60); eGFR For Non-African Americans > 60 (> 60)
--- NOTE | 2017-04-18 07:45 | Electrocardiograph Report ---
[address] [address] Test Date: 2017-04-16 Pat Name: Marley Salazar Department: 102 Room: 2A26 Gender: F Ground [employer]: : 1950 Requested By: Jacob Aviles Order Number: [id number] Reading MD: Shashi Roca MD Measurements Intervals [place] Rate: 87 P: 51 [place]: 124 QRS: 62 QRSD: 81 T: 42 QT: 345 QTc: 389 Interpretive Statements SINUS RHYTHM BASELINE ARTIFACT Electronically Signed On 04-18-2017 7:43:57 EST by Shashi Roca MD
[2017-04-18] MEDS: Anastrozole 1 MG TABLET PO SCH (09:24)
[2017-04-18] MEDS: Metoprolol XL (24 HR) Succ 25 MG TAB.ER.24H PO SCH (09:24)
[2017-04-18] MEDS: Aspirin Enteric Coated 81 MG Tablet PO SCH (09:24)
[2017-04-18] MEDS: Nystatin POWDER 30 GM BOTTLE TP SCH ×3 (09:29→20:15)
[2017-04-18 09:48] LABS: Anisocytosis 1+ (Not Present); Microcytosis Present (Not Present); Platelet Estimate Normal (Normal)
[2017-04-18] MEDS ORDERED: Albuterol 2.5 MG/3 ML NEBULIZER IH PRN (12:03)
--- NOTE | 2017-04-18 12:57 | Internal Med Progress Note ---
Date of Encounter: 04/18/17 Time of Encounter: 12:55 - Assessment and plan (1) Acute exacerbation of chronic obstructive airways disease Current Visit: No Status: Acute Assessment and plan: Reports of improvement compared to previous day will continue systemic steroids (decreased to solumedrol 40mg IV q12h),abx, bronchodilator support O2 supplementation monitor O2 saturation, goal O2 sat: 88-92% will closely monitor respiratory status (2) HTN (hypertension) Current Visit: Yes Status: Chronic Assessment and plan: BP within acceptable range continue home meds Hydralazine 10mg IV q6h prn SBP>160 Qualifiers: Hypertension type: essential hypertension Qualified Code(s): I10 - Essential (primary) hypertension (3) DVT prophylaxis Current Visit: No Status: Acute Assessment and plan: Heparin SQ (4) CAD (coronary artery disease) Current Visit: No Status: Chronic Assessment and plan: no signs of angina present continue home meds (asa, statin, bb) Qualifiers: Coronary Disease-Associated Artery/Lesion type: [place] artery [place] vs. transplanted heart: [place] heart Associated angina: without angina Qualified Code(s): I25.10 - Atherosclerotic heart disease of [place] coronary artery without angina pectoris (5) Tobacco abuse Current Visit: Yes Status: Chronic Assessment and plan: smoking cessation counseling provided nicotine supplementation given (6) Influenza Current Visit: Yes Status: Acute Assessment and plan: continue Tamiflu BID (day 03/11) - Subjective Interval history: Patient seen and examined at bedside. Resting in bed and reports of improvement in her breathing. Pt reports of have severe anxiety in regards to her health and her anxiety is noted to be contributing to her worsening respiratory status. Currently saturating well on 2L NC at rest Baseline home O2: 3L - Constitutional Vitals: Temp Pulse Resp BP Pulse Ox 97.7 F 73 14 148/75 98 04/18/17 11:39 04/18/17 11:39 04/18/17 11:39 04/18/17 11:39 04/18/17 11:39 General appearance: Present: A&O X 3, no acute distress, obese - Head Head exam: Present: atraumatic, normocephalic - Eye Eye exam: Present: conjuntiva pink, sclera anicteric - Respiratory Respiratory exam: Absent: respiratory distress, wheezes Additional comments: decreased breath sounds, equal air entry bilaterally - Cardiovascular Cardiovascular exam: Present: RRR, +S1, +S2. Absent: diastolic murmur, gallop, rubs, systolic murmur - GI/Abdominal GI/Abdominal exam: Present: normal bowel sounds, soft, no peritoneal signs. Absent: distended, tenderness - Extremities Exam Extremities exam: Present: warm, radial pulses palpable and symmetrical. Absent : calf tenderness, pedal edema - Neurological Exam Neurological exam: Present: alert, oriented X3 Internal Medicine: Result - Labs CBC & Chem 7: 04/18/17 06:41 04/18/17 06:41 Labs: Short CBC 04/18/17 Range/Units 06:41 WBC 10.2 (4.3-11.1) K/mcL Hgb 10.5 L (11.5-15.4) g/dL Hct 33.1 L (35.3-44.9) % Plt Count 322 (140-400) K/mcL Neutrophils # 8.1 (1.6-8.9) K/mcL BMP 04/18/17 06:41 Sodium 137 Potassium 4.3 Chloride 102 Carbon Dioxide 33 H BUN 14 Creatinine 0.54 L Glucose 138 H Calcium 8.9 Consult Discharge Plan - Plan Referrals: Mary Cuellar MD [Primary Care Provider] - (web request sent on 04/18/17)
[2017-04-18] MEDS: Levofloxacin 500 MG/100 ML 500 MG/100 ML BAG IVPB SCH (20:14)
[2017-04-19 03:48] LABS: Basophils % 0.2 %; Hematocrit 32.5 % (35.3-44.9); Hemoglobin 10.2 g/dL (11.5-15.4); Immature Granulocytes % 1.1 % (0-4); Lymphocytes # 2.1 K/mcL (0.6-4.6); Lymphocytes % 16.9 %; Mean Corpuscular HGB Conc 31.4 g/dL (31.6-35.5); Mean Corpuscular Hemoglobin 24.3 pg (28.0-33.3); Mean Corpuscular Volume 77.4 fL (83.0-100.0); Mean Platelet Volume 9.1 fL (9.4-12.4); Monocytes # 0.6 K/mcL (0.0-1.3); Monocytes % 4.7 %; Neutrophils # 9.5 K/mcL (1.6-8.9); Platelet Count 341 K/mcL (140-400); Red Cell Distribution Width 18.9 % (11.5-14.5); Segmented Neutrophils % 77.1 %
[2017-04-19 04:07] LABS: BUN/Creatinine Ratio 25 (6-26); Blood Urea Nitrogen 17 mg/dL (8-23); Calcium 8.8 mg/dL (8.6-10.3); Carbon Dioxide 32 mEq/L (23-29); Chloride 100 mEq/L (98-107); Glucose 124 mg/dL (70-105); Magnesium 2.1 mg/dL (1.6-2.6); Osmolality,Calculated 287 (280-300); Phosphorous 3.4 mg/dL (2.7-4.5); Potassium 4.6 mEq/L (3.5-5.1); Sodium 137 mEq/L (136-145); eGFR For African Americans > 60 (> 60); eGFR For Non-African Americans > 60 (> 60)
[2017-04-19] MEDS: Ipratropium/Albuterol Neb 3 ML IH SCH ×4 (04:13→22:58)
[2017-04-19 04:21] LABS: Anisocytosis 1+ (Not Present); Platelet Estimate Normal (Normal)
[2017-04-19 04:22] LABS: Reactive Lymphocytes Present (Not Present)
[2017-04-19] MEDS: *HR* Heparin 5,000 UNIT/ML VIAL SQ SCH ×2 (04:54→16:05)
[2017-04-19] MEDS: MethylPREDNISolone 40 MG/ML VIAL IVP SCH (04:54)
[2017-04-19] MEDS: Anastrozole 1 MG TABLET PO SCH (10:01)
[2017-04-19] MEDS: Aspirin Enteric Coated 81 MG Tablet PO SCH (10:01)
[2017-04-19] MEDS: Metoprolol XL (24 HR) Succ 25 MG TAB.ER.24H PO SCH (10:01)
[2017-04-19] MEDS: Nystatin POWDER 30 GM BOTTLE TP SCH ×3 (10:02→21:17)
--- NOTE | 2017-04-19 14:29 | Internal Med Progress Note ---
Date of Encounter: 04/19/17 Time of Encounter: 14:27 - Assessment and plan (1) Acute exacerbation of chronic obstructive airways disease Current Visit: No Status: Acute Assessment and plan: Reports of improvement compared to previous day will continue systemic steroids (d/c solumedrol, started Prednisone),abx, bronchodilator support O2 supplementation monitor O2 saturation, goal O2 sat: 88-92% will closely monitor respiratory status (2) HTN (hypertension) Current Visit: Yes Status: Chronic Assessment and plan: Noted to be hypertensive increased home dose of Losartan to 75mg PO qd will closely monitor BP Hydralazine 10mg IV q6h prn SBP>160 Qualifiers: Hypertension type: essential hypertension Qualified Code(s): I10 - Essential (primary) hypertension (3) DVT prophylaxis Current Visit: No Status: Acute Assessment and plan: Heparin SQ (4) CAD (coronary artery disease) Current Visit: No Status: Chronic Assessment and plan: no signs of angina present continue home meds (asa, statin, bb) Qualifiers: Coronary Disease-Associated Artery/Lesion type: [place] artery [place] vs. transplanted heart: [place] heart Associated angina: without angina Qualified Code(s): I25.10 - Atherosclerotic heart disease of [place] coronary artery without angina pectoris (5) Tobacco abuse Current Visit: Yes Status: Chronic Assessment and plan: smoking cessation counseling provided nicotine supplementation given (6) Influenza Current Visit: Yes Status: Acute Assessment and plan: continue Tamiflu BID (day 1) - Subjective Interval history: Patient seen and examined at bedside. Resting in bed and reports of improvement in her breathing. Pt reports of have severe anxiety in regards to her health and her anxiety is noted to be contributing to her worsening respiratory status. Currently saturating well on 2L NC at rest Baseline home O2: 3L Noted to remain hypertensive, gave one time dose of Hydralazine 10mg IVP will closely monitor BP Increased home dose of losartan to 75mg PO qdaily - Constitutional Vitals: Temp Pulse Resp BP Pulse Ox 97.6 F 74 17 172/79 93 04/19/17 12:16 04/19/17 12:16 04/19/17 12:16 04/19/17 12:16 04/19/17 12:16 General appearance: Present: A&O X 3, no acute distress, obese - Head Head exam: Present: atraumatic, normocephalic - Eye Eye exam: Present: conjuntiva pink, sclera anicteric - Respiratory Respiratory exam: Absent: respiratory distress, wheezes (equal air entry bilaterally ) - Cardiovascular Cardiovascular exam: Present: RRR, +S1, +S2. Absent: diastolic murmur, gallop, rubs, systolic murmur - GI/Abdominal GI/Abdominal exam: Present: normal bowel sounds, soft, no peritoneal signs. Absent: distended, tenderness - Extremities Exam Extremities exam: Present: warm, radial pulses palpable and symmetrical. Absent : calf tenderness, cyanotic, pedal edema - Neurological Exam Neurological exam: Present: alert, oriented X3 Internal Medicine: Result - Labs CBC & Chem 7: 04/19/17 03:08 04/19/17 03:08 Labs: Short CBC 04/19/17 Range/Units 03:08 WBC 12.3 H (4.3-11.1) K/mcL Hgb 10.2 L (11.5-15.4) g/dL Hct 32.5 L (35.3-44.9) % Plt Count 341 (140-400) K/mcL Neutrophils # 9.5 H (1.6-8.9) K/mcL BMP 04/19/17 03:08 Sodium 137 Potassium 4.6 Chloride 100 Carbon Dioxide 32 H BUN 17 Creatinine 0.67 Glucose 124 H Calcium 8.8 Consult Discharge Plan - Plan Referrals: Mary Cuellar MD [Primary Care Provider] - (web request sent on 04/18/17)
[2017-04-19] MEDS: predniSONE 20 MG TABLET PO SCH (16:05)
[2017-04-19] MEDS ORDERED: predniSONE 20 MG TABLET PO SCH (17:00)
[2017-04-19] MEDS: Levofloxacin 500 MG/100 ML 500 MG/100 ML BAG IVPB SCH (21:16)
[2017-04-19] MEDS ORDERED: Pantoprazole 40 MG VIAL IVP SCH (22:15)
[2017-04-20] MEDS: Ipratropium/Albuterol Neb 3 ML IH SCH ×2 (04:15→10:39)
[2017-04-20 04:19] LABS: Basophils # 0.1 K/mcL (0.0-0.2); Basophils % 0.4 %; Hematocrit 32.2 % (35.3-44.9); Lymphocytes # 3.1 K/mcL (0.6-4.6); Lymphocytes % 26.1 %; Mean Corpuscular HGB Conc 31.1 g/dL (31.6-35.5); Mean Corpuscular Hemoglobin 24.1 pg (28.0-33.3); Mean Corpuscular Volume 77.6 fL (83.0-100.0); Mean Platelet Volume 8.9 fL (9.4-12.4); Monocytes # 0.9 K/mcL (0.0-1.3); Monocytes % 7.7 %; Neutrophils # 7.7 K/mcL (1.6-8.9); Nucleated Red Blood Cells 0.2 /100 WBC (0); Platelet Count 357 K/mcL (140-400); Red Blood Count 4.15 M/mcL (3.82-4.97); Red Cell Distribution Width 18.9 % (11.5-14.5); Segmented Neutrophils % 63.8 %
[2017-04-20 04:50] LABS: BUN/Creatinine Ratio 28 (6-26); Blood Urea Nitrogen 18 mg/dL (8-23); Calcium 8.6 mg/dL (8.6-10.3); Carbon Dioxide 32 mEq/L (23-29); Chloride 100 mEq/L (98-107); Glucose 100 mg/dL (70-105); Magnesium 2.1 mg/dL (1.6-2.6); Osmolality,Calculated 286 (280-300); Phosphorous 3.8 mg/dL (2.7-4.5); Potassium 4.1 mEq/L (3.5-5.1); Sodium 137 mEq/L (136-145); eGFR For African Americans > 60 (> 60); eGFR For Non-African Americans > 60 (> 60)
[2017-04-20 05:14] LABS: Anisocytosis 1+ (Not Present); Microcytosis Present (Not Present); Platelet Estimate Normal (Normal)
[2017-04-20 05:15] LABS: Reactive Lymphocytes Present (Not Present)
[2017-04-20] MEDS: *HR* Heparin 5,000 UNIT/ML VIAL SQ SCH (06:19)
[2017-04-20] MEDS: Metoprolol XL (24 HR) Succ 25 MG TAB.ER.24H PO SCH (10:32)
[2017-04-20] MEDS: Anastrozole 1 MG TABLET PO SCH (10:32)
[2017-04-20] MEDS: Aspirin Enteric Coated 81 MG Tablet PO SCH (10:32)
[2017-04-20] MEDS: predniSONE 20 MG TABLET PO SCH (10:32)
[2017-04-20] MEDS: Nystatin POWDER 30 GM BOTTLE TP SCH ×2 (10:33→14:25)
[2017-04-20] MEDS: ALPRAZolam 0.25 MG TABLET PO PRN (11:14)
[2017-04-20 11:38] VITALS: BP 120/71
--- NOTE | 2017-04-20 14:16 | Discharge Summary ---
Date of Encounter: 04/20/17 Time of Encounter: 14:06 - Discharge Diagnosis (1) COPD (chronic obstructive pulmonary disease) Priority: Primary Status: Acute Comments: Has known COPD with chronic resp failure on home O2. Suspect COPD exacerbation with coughing and wheezing. CXR without evidence of pneumonia. Symptoms improved with IV Levaquin, steroids and breathing treatments. Discharge home on Levaquin, steroid taper. Smoking cessation advised. Qualifiers: COPD type: COPD with acute exacerbation Qualified Code(s): J44.1 - Chronic obstructive pulmonary disease with (acute) exacerbation (2) Influenza Priority: Primary Status: Acute Comments: resp PCR positive for influenza A. Continue Tamiflu I discharge. To complete a total course of 5 days (3) HTN (hypertension) Priority: Secondary Status: Chronic Comments: per hx. BP variable but acceptable. Cont home BP medication Qualifiers: Hypertension type: essential hypertension Qualified Code(s): I10 - Essential (primary) hypertension (4) CAD (coronary artery disease) Priority: Secondary Status: Chronic Comments: per hx. Asymptomatic. Denied chest pain. Cont ASA, statin, BB Qualifiers: Coronary Disease-Associated Artery/Lesion type: [place] artery [place] vs. transplanted heart: [place] heart Associated angina: without angina Qualified Code(s): I25.10 - Atherosclerotic heart disease of [place] coronary artery without angina pectoris - Discharge Medications Prescriptions: levoFLOXacin [Levaquin] 750 mg PO DAILY #3 tablet Oseltamivir [Tamiflu] 75 mg PO BID #6 capsule predniSONE [PredniSONE] 10 mg PO DAILY #30 tablet Home Medications: Albuterol Sulfate [Albuterol Inhaler] 1 - 2 puff IH Q4HR PRN 10/15/14 [History] Aspirin Enteric Coated [Aspirin EC] 81 mg PO DAILY 10/15/14 [History] Atorvastatin [Lipitor] 40 mg PO HS 10/15/14 [History] Losartan [Cozaar] 25 mg PO DAILY 08/13/16 [History] Ipratropium/Albuterol Neb [Duoneb] 3 ml IH [id number] PRN #30 inh 10/22/16 [Rx] Ipratropium/Albuterol Neb [Duoneb] 3 ml IH QID 04/16/17 [History] Anastrozole [Arimidex] 1 tab PO DAILY 04/17/17 [History] Metoprolol XL (24 HR) Succ [Toprol Xl] 25 tab PO DAILY 04/17/17 [History] Polyethylene Glycol 3350 [MiraLAX] 17 gm PO DAILY 04/17/17 [History] Oseltamivir [Tamiflu] 75 mg PO BID #6 capsule 04/20/17 [Rx] levoFLOXacin [Levaquin] 750 mg PO DAILY #3 tablet 04/20/17 [Rx] predniSONE [PredniSONE] 10 mg PO DAILY #30 tablet 04/20/17 [Rx] Allergies/Adverse Reactions: 3 Allergy/AdvReac Type Severity Reaction Status Date / Time codeine AdvReac Mild Nausea Verified 04/14/17 18:50 Oxycodone AdvReac Mild Nausea Verified 04/14/17 18:50 Date of admission: 04/16/17 21:49 Primary care physician: Mary Cuellar Discharging clinician: Cynthia Aquino Anticipated date of discharge: 04/20/17 - Patient Status Disposition: Home, Self-Care Condition: Good Functional capacity at discharge: uses cane/walker Overall status at discharge: patient is progressing back to baseline - Discharge Instructions Instructions: Prednisone (By mouth), Chronic Obstructive Pulmonary Disease (DC) , Oseltamivir (By mouth), Levofloxacin (By mouth) Follow Up With: Mary Cuellar MD [Primary Care Provider] - (web request sent on 04/18/17) - Diet and Activity Activity: increase activity as tolerated Diet: advance to your usual diet Interval History: Seen and examined at that site. Patient is new to me, information obtained from chart review and patient report. Patient says she feels significantly improved and would like to go home today. Still with some SOB but overall improved. No chest pain. Hospital course: See assessment and plan for hospital course - Time Spent with Patient Total time spent providing and/or coordinating discharge services: - Constitutional Vitals: Temp Pulse Resp BP Pulse Ox 98.4 F 69 14 120/71 96 04/20/17 11:30 04/20/17 11:30 04/20/17 11:30 04/20/17 11:30 04/20/17 11:30 General appearance: Present: A&O X 3, no acute distress, obese - Head Head exam: Present: atraumatic, normocephalic - Eye Eye exam: Present: PERRL, conjuntiva pink, sclera anicteric Pupils: Present: PERRL - Neck Neck exam general surgery: Present: supple, trachea midline. Absent: lymphadenopathy - Respiratory Respiratory exam: Present: rhonchi, wheezes. Absent: accessory muscle use, rales Additional comments: Scattered and scant rhonchi and wheezing - Cardiovascular Cardiovascular exam: Present: RRR, +S1, +S2. Absent: diastolic murmur, gallop, rubs, systolic murmur - GI/Abdominal GI/Abdominal exam: Present: normal bowel sounds, soft, no peritoneal signs. Absent: distended, tenderness - Extremities Exam Extremities exam: Present: warm, radial pulses palpable and symmetrical. Absent : calf tenderness, cyanotic, pedal edema - Neurological Exam Neurological exam: Present: CN II-XII intact, oriented X3, no focal deficits. Absent: pronater drift, facial droop, speech deficit - Skin Skin exam: Present: dry, intact
--- NOTE | 2017-04-20 14:52 | Physician Discharge Referral ---
Home Health/Hosp Referral Info Transfer to: Home Health Attending Provider: Cynthia Muniz CNP Provider in Charge Post Discharge: PCP - Diagnosis (1) COPD (chronic obstructive pulmonary disease) Status: Acute (2) Influenza Status: Acute (3) HTN (hypertension) Status: Chronic (4) CAD (coronary artery disease) Status: Chronic - Respiratory Orders Oxygen / L per min (2) Smoking Cessation: Smoking cessation has been advised. For more information, call the [place] Tobacco Quit Line at 5-128-GCZX-NOW. - Diet/Nutrition Diet/Nutrition Orders: Regular - Activity Activity Orders: Up ad eva, Walker - Services Needed Following services are medically necessary services: Nursing, Home Health Aide, Physical Therapy, Occupational Therapy - Transfer Medications Prescriptions: levoFLOXacin [Levaquin] 750 mg PO DAILY #3 tablet Oseltamivir [Tamiflu] 75 mg PO BID #6 capsule predniSONE [PredniSONE] 10 mg PO DAILY #30 tablet Home Medications: Albuterol Sulfate [Albuterol Inhaler] 1 - 2 puff IH Q4HR PRN 10/15/14 [History] Aspirin Enteric Coated [Aspirin EC] 81 mg PO DAILY 10/15/14 [History] Atorvastatin [Lipitor] 40 mg PO HS 10/15/14 [History] Losartan [Cozaar] 25 mg PO DAILY 08/13/16 [History] Ipratropium/Albuterol Neb [Duoneb] 3 ml IH [id number] PRN #30 inh 10/22/16 [Rx] Ipratropium/Albuterol Neb [Duoneb] 3 ml IH QID 04/16/17 [History] Anastrozole [Arimidex] 1 tab PO DAILY 04/17/17 [History] Metoprolol XL (24 HR) Succ [Toprol Xl] 25 tab PO DAILY 04/17/17 [History] Polyethylene Glycol 3350 [MiraLAX] 17 gm PO DAILY 04/17/17 [History] Oseltamivir [Tamiflu] 75 mg PO BID #6 capsule 04/20/17 [Rx] levoFLOXacin [Levaquin] 750 mg PO DAILY #3 tablet 04/20/17 [Rx] predniSONE [PredniSONE] 10 mg PO DAILY #30 tablet 04/20/17 [Rx] Allergies/Adverse Reactions: 3 Allergy/AdvReac Type Severity Reaction Status Date / Time codeine AdvReac Mild Nausea Verified 04/14/17 18:50 Oxycodone AdvReac Mild Nausea Verified 04/14/17 18:50 Certification: Further, I certify that my clinical findings support that this patient is homebound (i.e. absences from home require considerable and taxing effort and are for medical reasons or [employer] services or infrequently or short duration when for other reasons) because: Homebound Reason: Leaving home requires considerable and taxing effort due to condition Attestation: My signature below is to certify that this patient is under my care and that I, or nurse practitioner, or a physician's respiratory care assistant working with me, has a face-to -face encounter with this patient.
== END 2017-04-20 15:50 | disposition home or self-care (01) | DRG 191 ==
LOC: EMEROO 19:58 → 2ANU 19:58
PROVIDERS: ADMIT Internal Medicine Hematology & Oncology; ATTEND Internal Medicine

== ENCOUNTER 2019-09-05 20:30 | Observation (INO) ==
[2019-09-05 20:59] LABS: Basophils # 0.1 K/mcL (0.0-0.2); Basophils % 0.5 %; Eosinophils # 0.1 K/mcL (0.0-0.6); Eosinophils % 0.5 %; Hematocrit 42.3 % (35.3-44.9); Hemoglobin 13.1 g/dL (11.5-15.4); Immature Granulocytes % 0.3 % (0-4); Lymphocytes # 1.7 K/mcL (0.6-4.6); Lymphocytes % 12.6 %; Mean Corpuscular Volume 77.5 fL (83.0-100.0); Mean Platelet Volume 8.6 fL (9.4-12.4); Monocytes # 0.8 K/mcL (0.0-1.3); Monocytes % 6.4 %; Neutrophils # 10.4 K/mcL (1.6-8.9); Platelet Count 441 K/mcL (140-400); Red Blood Count 5.46 M/mcL (3.82-4.97); Red Cell Distribution Width 18.6 % (11.5-14.5); Segmented Neutrophils % 79.7 %; White Blood Count 13.1 K/mcL (4.3-11.1)
[2019-09-05 21:03] LABS: Prothrombin Time 11.4 Seconds (9.4-12.1)
[2019-09-05 21:06] LABS: Activated Partial Thrombo Time 37.5 Seconds (26.0-36.0)
[2019-09-05 21:20] LABS: BUN/Creatinine Ratio 13 (6-26); Blood Urea Nitrogen 12 mg/dL (8-23); Calcium 9.2 mg/dL (8.6-10.3); Carbon Dioxide 22 mEq/L (23-29); Chloride 101 mEq/L (98-107); Glucose 113 mg/dL (70-105); Osmolality,Calculated 279 (280-300); Potassium 4.2 mEq/L (3.5-5.1); Sodium 134 mEq/L (136-145); eGFR For African Americans > 60 (> 60); eGFR For Non-African Americans 58 (> 60)
[2019-09-05 21:25] LABS: Troponin I 0.05 ng/mL (< 0.04)
[2019-09-06] MEDS ORDERED: Acetaminophen 325 MG TABLET PO PRN (00:22)
[2019-09-06] MEDS ORDERED: *HR* Promethazine 25 MG/ML VIAL IVP PRN (00:22)
[2019-09-06] MEDS ORDERED: Naloxone 0.4 MG/ML INJ IVP PRN (00:22)
[2019-09-06] MEDS ORDERED: Perflutren Lipid Microsphere 1.3 ML in 0.9 % Sodium Chloride 8.7 ML IVP ONE ×2 (00:24→07:58)
[2019-09-06] MEDS ORDERED: Ipratropium/Albuterol Neb 3 ML IH PRN (00:31)
[2019-09-06] MEDS: 0.9 % Sodium Chloride 1,000 ML IVC SCH ×2 (00:50→15:53)
[2019-09-06 02:32] LABS: Hematocrit 37.2 % (35.3-44.9); Hemoglobin 11.4 g/dL (11.5-15.4); Mean Corpuscular HGB Conc 30.6 g/dL (31.6-35.5); Mean Corpuscular Hemoglobin 23.9 pg (28.0-33.3); Mean Platelet Volume 8.6 fL (9.4-12.4); Platelet Count 391 K/mcL (140-400); Red Blood Count 4.77 M/mcL (3.82-4.97); Red Cell Distribution Width 17.8 % (11.5-14.5); White Blood Count 10.4 K/mcL (4.3-11.1)
[2019-09-06 02:37] LABS: INR 1.1; Prothrombin Time 12.4 Seconds (9.4-12.1)
[2019-09-06 02:57] LABS: Alanine Aminotransferase 11 Units/L (7-52); Albumin 3.7 g/dL (3.5-5.7); Albumin/Globulin Ratio 1.3 (1.1-2.2); Alkaline Phosphatase 66 Units/L (34-104); Aspartate Amino Transferase 15 Units/L (13-39); BUN/Creatinine Ratio 15 (6-26); Bilirubin,Total 0.2 mg/dL (0.3-1.0); Blood Urea Nitrogen 14 mg/dL (8-23); Carbon Dioxide 26 mEq/L (23-29); Chloride 103 mEq/L (98-107); Chol/HDL Ratio 3.4 (0-4.9); Cholesterol 150 mg/dL (< 200); Globulin 2.8 g/dL (2.4-3.5); Glucose 110 mg/dL (70-105); HDL Cholesterol 44 mg/dL (40-59); LDL Cholesterol,Calculated 81 mg/dL (< 100); Magnesium 1.9 mg/dL (1.6-2.6); Osmolality,Calculated 283 (280-300); Phosphorous 3.4 mg/dL (2.7-4.5); Potassium 3.8 mEq/L (3.5-5.1); Sodium 136 mEq/L (136-145); Total Protein 6.5 g/dL (6.4-8.9); Triglycerides 123 mg/dL (< 150); eGFR For African Americans > 60 (> 60); eGFR For Non-African Americans 58 (> 60)
[2019-09-06 03:09] LABS: Thyroid Stimulating Hormone 3.796 mcIU/mL (0.340-5.600)
[2019-09-06 03:19] LABS: Folate 9.9 ng/mL (3.0-16.0)
[2019-09-06] MEDS ORDERED: *HR* Heparin 5,000 UNIT/ML VIAL IVP ONE (03:43)
[2019-09-06] MEDS ORDERED: *HR* Heparin 5,000 UNIT/ML VIAL IVP PRN ×2 (03:43)
[2019-09-06] MEDS: Ipratropium/Albuterol Neb 3 ML IH SCH ×6 (04:19→23:38)
[2019-09-06] MEDS: Heparin 25,000 UNIT/250 ML D5W 25,000 UNIT/250 ML IV.SOLN IVC SCH (04:39)
[2019-09-06 04:48] LABS: Hematocrit 39.5 % (35.3-44.9); Hemoglobin 11.8 g/dL (11.5-15.4); Mean Corpuscular HGB Conc 29.9 g/dL (31.6-35.5); Mean Corpuscular Hemoglobin 23.3 pg (28.0-33.3); Mean Corpuscular Volume 78.1 fL (83.0-100.0); Mean Platelet Volume 8.6 fL (9.4-12.4); Platelet Count 417 K/mcL (140-400); Red Blood Count 5.06 M/mcL (3.82-4.97); Red Cell Distribution Width 18.1 % (11.5-14.5); White Blood Count 10.5 K/mcL (4.3-11.1)
[2019-09-06 04:56] LABS: Heparin anti-factor XA UFH < 0.04 IU/mL (0.30-0.70)
[2019-09-06 04:57] LABS: Prothrombin Time 11.7 Seconds (9.4-12.1)
[2019-09-06] MEDS ORDERED: Regadenoson 0.4 MG/5 ML SYRINGE IVP ONE (06:23)
[2019-09-06] MEDS: Aspirin Enteric Coated 81 MG Tablet PO SCH (08:58)
[2019-09-06] MEDS: GuaiFENesin/Dextromethorphan TABLET PO SCH ×2 (08:58→21:01)
[2019-09-06] MEDS: Metoprolol XL (24 HR) Succ 25 MG TAB.ER.24H PO SCH (08:58)
[2019-09-06 09:29] LABS: Estimated Average Glucose 146 mg/dl; Hemoglobin A1C 6.7 %
[2019-09-06] MEDS ORDERED: D5% in Water 1,000 ML IVC PRN (09:55)
[2019-09-06] MEDS ORDERED: Dextrose Gel 15 GM/37.5 ML TUBE PO PRN ×2 (09:55)
[2019-09-06] MEDS ORDERED: *HR* Dextrose 50 % in Water (Vial) 50 ML VIAL IVP PRN (09:55)
[2019-09-06] MEDS: Insulin LISPRO 300 UNITS/3 ML VIAL SQ SCH ×3 (10:19→17:12)
[2019-09-06] MEDS ORDERED: *HR* Midazolam HCl 2 MG/2 ML VIAL ONE (13:56)
[2019-09-06] MEDS ORDERED: *HR* FentaNYL (PF) 100 MCG/2 ML VIAL ONE (13:56)
[2019-09-06] MEDS ORDERED: 0.9 % Sodium Chloride 1,000 ML ONE (13:56)
[2019-09-06] MEDS ORDERED: Nitroglycerin 1,000 MCG/10 ML VIAL IV ONE (13:57)
[2019-09-06] MEDS ORDERED: ISOVUE-370 200 ML INFUS..BTL ONE (13:57)
[2019-09-06] MEDS ORDERED: Heparin 1,000 UNITS/500 mL 500 ML ONE (13:57)
[2019-09-06] MEDS ORDERED: *HR* Heparin 10,000 UNIT/10 ML VIAL ONE (13:57)
[2019-09-06] MEDS: Isosorbide MONOnitrate (24 HR) 30 MG TAB.ER.24H PO SCH (15:52)
[2019-09-07] MEDS: Heparin 25,000 UNIT/250 ML D5W 25,000 UNIT/250 ML IV.SOLN IVC SCH (01:46)
[2019-09-07 01:51] LABS: Hematocrit 32.9 % (35.3-44.9); Hemoglobin 9.8 g/dL (11.5-15.4); Mean Corpuscular Volume 79.9 fL (83.0-100.0); Red Blood Count 4.12 M/mcL (3.82-4.97); White Blood Count 9.5 K/mcL (4.3-11.1)
[2019-09-07 01:52] LABS: Basophils % 0.4 %; Eosinophils # 0.2 K/mcL (0.0-0.6); Immature Granulocytes % 0.2 % (0-4); Lymphocytes # 3.2 K/mcL (0.6-4.6); Lymphocytes % 33.7 %; Mean Corpuscular HGB Conc 29.8 g/dL (31.6-35.5); Mean Corpuscular Hemoglobin 23.8 pg (28.0-33.3); Mean Platelet Volume 9.1 fL (9.4-12.4); Monocytes % 10.3 %; Neutrophils # 5.1 K/mcL (1.6-8.9); Platelet Count 344 K/mcL (140-400); Red Cell Distribution Width 17.9 % (11.5-14.5); Segmented Neutrophils % 53.4 %
[2019-09-07 02:00] LABS: BUN/Creatinine Ratio 15 (6-26); Blood Urea Nitrogen 11 mg/dL (8-23); Calcium 7.8 mg/dL (8.6-10.3); Carbon Dioxide 21 mEq/L (23-29); Chloride 106 mEq/L (98-107); Glucose 84 mg/dL (70-105); Magnesium 1.8 mg/dL (1.6-2.6); Osmolality,Calculated 277 (280-300); Phosphorous 2.9 mg/dL (2.7-4.5); Potassium 3.9 mEq/L (3.5-5.1); Sodium 134 mEq/L (136-145); eGFR For African Americans > 60 (> 60); eGFR For Non-African Americans > 60 (> 60)
[2019-09-07] MEDS: Ipratropium/Albuterol Neb 3 ML IH SCH ×3 (03:50→11:33)
[2019-09-07] MEDS: Insulin LISPRO 300 UNITS/3 ML VIAL SQ SCH (07:49)
[2019-09-07] MEDS: Metoprolol XL (24 HR) Succ 25 MG TAB.ER.24H PO SCH (08:39)
[2019-09-07] MEDS: Aspirin Enteric Coated 81 MG Tablet PO SCH (08:39)
[2019-09-07] MEDS: Isosorbide MONOnitrate (24 HR) 30 MG TAB.ER.24H PO SCH (08:39)
[2019-09-07] MEDS: GuaiFENesin/Dextromethorphan TABLET PO SCH (08:39)
[2019-09-07 11:14] VITALS: BP 113/68
== END 2019-09-07 12:43 | disposition home health service (06) ==
LOC: 3BNU 20:30 → EMEROOARM 20:30 → SUATTDRO 22:18 → 3BNU 23:32
PROVIDERS: ADMIT Internal Medicine; ATTEND Internal Medicine